=== PATIENT | female | born 1950 | race Caucasian/White ===

== ENCOUNTER 2021-01-25 09:00 | Observation (INO) | payer MEDICARE ==
[~2021-01-25] VITALS: Ht 157.5 cm; Wt 78.1 kg
[2021-01-25] MEDS ORDERED: SODIUM CHLORIDE FLUSH 10ML SYR IVF ONE (21:00)
[2021-01-25] MEDS ORDERED: ASPIRIN 81 MG TABLET CHEW PO ONE (21:00)
[2021-01-25 21:07] LABS: BASOPHILS % (AUTO) 1 % (0-1); EOSINOPHILS % (AUTO) 3 % (1-7); LYMPHOCYTES % (AUTO) 28 % (22-44); MD NO; MEAN CORPUSCULAR HEMOGLOBIN 28.7 pg (27.0-34.8); MEAN CORPUSCULAR HGB CONC 34.3 g/dL (32.4-35.8); MEAN PLATELET VOLUME 8.2 fL (7.4-10.4); MONOCYTES % (AUTO) 11 % (2-9); NEUTROPHILS % (AUTO) 57 % (42-75); PLATELET COUNT 217 x10^3/uL (130-400); RED BLOOD COUNT 4.74 x10^6/uL (3.82-5.3); RED CELL DISTRIBUTION WIDTH 13.8 % (9.6-15.2)
[2021-01-25 21:15] LABS: ALANINE AMINOTRANSFERASE 24 U/L (12-78); ALBUMIN 3.8 g/dL (3.4-5.0); ANION GAP 5 mmol/L (5-15); CALCIUM 8.8 mg/dL (8.5-10.1); CHLORIDE 105 mmol/L (98-107); CREATININE 0.93 mg/dL (0.55-1.02)
[2021-01-25 21:20] LABS: ALKALINE PHOSPHATASE 89 U/L (45-117); BILIRUBIN,TOTAL 0.7 mg/dL (0.2-1.0); TOTAL PROTEIN 7.2 g/dL (6.4-8.2); TROPONIN I < 0.015 ng/mL (0.000-0.045)
--- NOTE | 2021-01-25 21:21 | NUR ---
PT RESTING COMFORTABLY IN [facility]. PT HAS HAD HER EKG DONE, AND LABS BEEN DRAWN, AND PT REMAINS ON FULL CR MONITOR.
[2021-01-25] MEDS ORDERED: ASPIRIN 81 MG TABLET CHEW ONE ×2 (22:18→22:31)
[2021-01-25] MEDS ORDERED: LORazepam 2 MG/ML, 1ML ONE (22:19)
[2021-01-25] MEDS ORDERED: LORazepam 2 MG/ML, 1ML IVPush ONE (22:30)
--- NOTE | 2021-01-25 22:36 | NUR ---
Chest tightness/sob improved s/p ativan admin erp to bedside- to admit for cadiac workup
[2021-01-25] MEDS ORDERED: LEVO75TA PO (22:38)
[2021-01-25] MEDS ORDERED: ATOR-2 PO (23:17)
[2021-01-25] MEDS ORDERED: LOSA1TAB22 PO (23:17)
[2021-01-25] MEDS ORDERED: AMLO-211 PO (23:17)
[2021-01-26] MEDS ORDERED: ACETAMINOPHEN 325 MG TABLET PO PRN
[2021-01-26] MEDS ORDERED: MELATONIN 5 MG TABLET PO PRN
[2021-01-26] MEDS ORDERED: DOCUSATE 100 MG CAPSULE PO PRN
[2021-01-26] MEDS ORDERED: morphine SULFATE 10 MG/ML, 1ML IVPush PRN
[2021-01-26] MEDS ORDERED: LIDODERM 5% PATCH TD PRN
[2021-01-26 00:13] VITALS: BP 137/86
[2021-01-26] MEDS: HEPARIN 5,000 UNITS/ML, 1ML SQ SCH ×3 (00:30→16:19)
[2021-01-26] MEDS ORDERED: POTASSIUM CHLORIDE 20 MEQ TAB.ER.PRT PO ONE (00:30)
[2021-01-26 03:34] LABS: TROPONIN I < 0.015 ng/mL (0.000-0.045)
[2021-01-26 07:02] VITALS: BP 108/74
[2021-01-26 08:20] LABS: CHOL/HDL RATIO 3.7; LDL/HDL RATIO 1.7 (0.5-3.0)
[2021-01-26 10:00] LABS: TROPONIN I < 0.015 ng/mL (0.000-0.045)
[2021-01-26] MEDS ORDERED: TEMPLATE NON-FORMULARY MED. (Losartan/Hydrochlorothiazide** (Losartan-Hctz 100-25 Mg Tab PO SCH (11:30)
[2021-01-26] MEDS ORDERED: HYDROCHLOROTHIAZIDE 25 MG TABLET PO SCH (12:00)
[2021-01-26] MEDS ORDERED: LOSARTAN 100 MG TAB PO SCH (12:00)
[2021-01-26 13:45] VITALS: BP 127/75
[2021-01-27] MEDS ORDERED: LEVOTHYROXINE 75 MCG TABLET PO SCH (06:00)
[2021-01-27] MEDS ORDERED: ATORVASTATIN 80 MG TABLET PO SCH (09:00)
== END 2021-01-26 17:45 | disposition home or self-care (01) ==
LOC: ED 09:01 → OBSVTOIN 09:02 → 3N 09:02 → INTOOBSV 09:02 → ED 09:02 → UNDOADMOB 09:02 → ORIP 09:02 → UNDODISOB 11:59 → ED 22:43 → EDIP 22:50 → INTOOBSV 22:50 → UNDOADMOB 22:50 → 3N 23:56 → EDIP 01-26 00:07 → 5SO 01-26 00:07 → UNDODISOB 01-26 17:57
PROVIDERS: ADMIT Internal Medicine; ATTEND Internal Medicine
DX: R07.89 Other chest pain (principal); R60.0 Localized edema; E87.6 Hypokalemia; E03.9 Hypothyroidism, unspecified; I25.10 Atherosclerotic heart disease of native coronary artery without angina pectoris; E78.5 Hyperlipidemia, unspecified; I10 Essential (primary) hypertension; R09.89 Other specified symptoms and signs involving the circulatory and respiratory systems; F41.9 Anxiety disorder, unspecified; Z87.891 Personal history of nicotine dependence; Z79.899 Other long term (current) drug therapy
CPT/HCPCS: 36415; 71045; 80053; 80061; 83735; 83880; 84443; 84484; 85025; 85379; 93005; 93017; 93306; 93356; 93970; 96372; 96374; 99285; G0378; J1644; J2060